=== PATIENT | male | born 2000 | race Caucasian/White ===

== ENCOUNTER 2020-09-28 20:24 | Inpatient (IN) | payer OTHER ==
[~2020-09-28] VITALS: Ht 185.4 cm; Wt 91.8 kg
[2020-09-28 21:30] LABS: HEMATOCRIT 48.1 % (42.0-52.0); HEMOGLOBIN 15.8 g/dl (13.5-17.5); MEAN CORPUSCULAR HEMOGLOBIN 28.6 pg (27.0-33.0); MEAN CORPUSCULAR HGB CONC 32.8 g/dl (32.0-36.5); PLATELET COUNT, AUTOMATED 255 10^3/uL (150-450); RED BLOOD COUNT 5.53 10^6/uL (4.30-6.10); WHITE BLOOD COUNT 7.6 10^3/uL (4.0-10.0)
[2020-09-28 22:07] LABS: AMPHETAMINES LEVEL URINE NEGATIVE (NEGATIVE); BARBITURATES URINE NEGATIVE (NEGATIVE); BENZODIAZEPINES URINE NEGATIVE (NEGATIVE); CANNABINOIDS URINE NEGATIVE (NEGATIVE); COCAINE METABOLITE URINE NEGATIVE (NEGATIVE); METHADONE URINE NEGATIVE (NEGATIVE); OPIATES URINE NEGATIVE (NEGATIVE); PHENCYCLIDINE URINE NEGATIVE (NEGATIVE)
[2020-09-28 22:15] LABS: ACETAMINOPHEN LEVEL < 2.0 UG/ML (10.0-30.0); ALBUMIN 3.8 GM/DL (3.2-5.2); ALT/SGPT 29 U/L (12-78); BILIRUBIN,DIRECT 0.2 MG/DL (0.0-0.2); BILIRUBIN,TOTAL 0.6 MG/DL (0.2-1.0); BLOOD UREA NITROGEN 12 MG/DL (7-18); CALCIUM LEVEL 8.7 MG/DL (8.5-10.1); CARBON DIOXIDE LEVEL 29 MEQ/L (21-32); CHLORIDE LEVEL 103 MEQ/L (98-107); ETHYL ALCOHOL (ETHANOL) < 0.003 % (0.000-0.010); GLUCOSE, FASTING 116 MG/DL (70-100); POTASSIUM SERUM 3.8 MEQ/L (3.5-5.1); SALICYLATE LEVEL < 1.7 MG/DL (5.0-30.0); SODIUM LEVEL 138 MEQ/L (136-145); TOTAL PROTEIN 7.1 GM/DL (6.4-8.2)
[2020-09-29 00:12] LABS: RSV AMPLIFICATION NEGATIVE (NEGATIVE)
[2020-09-29] MEDS ORDERED: MAALOX 30 ML SUSP *UDC PO PRN (00:30)
[2020-09-29] MEDS ORDERED: traZODone 50 MG TAB PO PRN (00:30)
[2020-09-29] MEDS ORDERED: ACETAMINOPHEN TAB 650MG DOSE (2X325MG) PO PRN (00:30)
[2020-09-29] MEDS ORDERED: OLANZapine ORAL DISINTEGRATING TAB 5MG PO PRN (00:30)
[2020-09-29] MEDS ORDERED: MOM 30ML SUSPENSION UDC PO PRN (00:30)
[2020-09-29] MEDS ORDERED: VITMTA PO (02:08)
[2020-09-29] MEDS ORDERED: MELA3TAB29 PO (02:08)
--- NOTE | 2020-09-29 02:48 | ECGEPIP ---
[facility] - ED Test Date: 2020-09-28 Pat Name: LYDIA OZUNA Department: Room: - Gender: Male [employer]: waldo : 2000 Requested By: Omkar العلي Order Number: [id number] Reading MD: Omkar Sal Measurements Intervals [place] Rate: 65 P: 42 CO: 122 QRS: 59 QRSD: 108 T: 58 QT: 392 QTc: 407 Interpretive Statements Normal sinus rhythm INCOMPLETE RIGHT BUNDLE BRANCH BLOCK NO PRIORS FOR COMPARISON Electronically Signed on 09-29-2020 2:47:37 EDT by Omkar Sal
[2020-09-29 06:41] VITALS: BP 126/92
[2020-09-29] MEDS: SERTRALINE HCL 50 MG TAB PO SCH (09:06)
[2020-09-29] MEDS ORDERED: CitaloPRAM (CeleXA) 10 MG TABLET PO ONE (09:15)
--- NOTE | 2020-09-29 12:39 | MHHPE ---
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 He is currently 9.39 legal status. CHIEF COMPLAINT: I wanted to kill myself. HISTORY OF PRESENT ILLNESS: Two days ago the patient got DUI, he became very depressed with ongoing stress , due to breakup with his girlfriend. He had suicidal thoughts and wanted to kill himself and try to cut superficially. He told his friend who in turn informed the sergeant and he was brought to the emergency room. This is his first psychiatric hospitalization. The patient has seen therapist before. The patient has self mutilating behavior from age 16, complains of hopelessness, helplessness, poor sleep, decreased appetite, Denies history of manic episodes of psychosis. PAST PSYCHIATRIC HISTORY: Never been hospitalized on psychiatric units. He has seen therapist. When he was young, he was treated with Ritalin for attention-deficit/hyperactive disorder (ADHD). SUICIDAL HISTORY: He has attempted suicide a couple of times by trying to choke himself and overdose himself. LEGAL HISTORY: This is his first driving under the influence (DUI) he got about 2 days ago. DRUG AND ALCOHOL HISTORY: The patient drinks alcohol during the week about a bottle of Vodka. He used to drink more before, but now he is not drinking much. Denies the use of any other drugs like cannabis. MEDICAL HISTORY: Denies medical problems. FAMILY HISTORY: Sister and brother have a history of depression. PERSONAL HISTORY: He has one brother and one sister. He was raised by biological parents. No history of abuses. He graduated from high school. MENTAL STATUS EXAMINATION: Well built of average height, cooperative, made poor eye contact. Psychomotor activity is normal. Mood is depressed. Affect is constricted. Thought process: Linear, goal directed. Thought content: Complained of suicidal thoughts without any plans. Perceptions: Denies any auditory hallucinations. He is oriented to time, place and person. His attention is good. VITAL SIGNS: Temperature 98.2, pulse is 76, blood pressure is 126/92, pulse oximetry is 98%. LABORATORY DATA: Complete blood count (CBC) within normal limits. Comprehensive metabolic panel (CMP) within normal limits. Toxicology was negative. Serology was negative for COVID too by PCR testing. REVIEW OF SYSTEMS: Constitutional: Denies fever or weight loss. HEENT: Denied headache, epistasis. Respiratory: Denies cough or shortness of breath. CVS: Denied chest pain, palpitations. Gastrointestinal (GI): Denied any abdominal pain, abdominal distension. Genitourinary (): Denied dysuria, hematuria. Neuro: Denied numbness, tingling, dizziness. Points and joints normal. DIAGNOSIS: 1. Depressive disorder, not otherwise specified, rule out substance abuse, mood disorder. 2. Alcohol use disorder. ASSESSMENT AND PLAN: 1. The patient tried to cut himself superficially and the patient has tendency to cut himself from age 16. Currently, he is depressed. Triggering factor was he had dew eyes. Plan is to [facility]. 2. He will be seen by casing sewer for medical needs. 3. He will be seen by case management and public health social worker. 4. He will be on suicide precaution. 5. He will go to activities. 6. He will be provided with individual group in [facility]. 7. Medications. The patient will be placed on citalopram 10 mg a.m., titrate the dose. Estimated length of stay is 4 to 5 days. Time spent: One hour. [facility] CENTERLu[facility]
[2020-09-29 16:31] VITALS: BP 133/67
--- NOTE | 2020-09-29 17:06 | HPEPDOC ---
General Date of Admission Sep 29, 2020 at 00:37 Date of Service: Sep 29, 2020 Attending Physician: JACE BRIGHT MD Chief Complaint The patient is a 19-year-old male admitted with a reason for visit of Unspecified Depressive Do. 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 In the ED, he was hemodynamically stable and CBC, BMP and tox screen were wnl. He was admitted to the [facility] for psych evaluation and treatment. Home Medications Scheduled Multivitamins (Thera M Plus Tablet) 1 Each Tablet, 1 TAB PO DAILY, (Reported) Scheduled PRN Melatonin (Melatonin) 3 Mg Tablet, 3 MG PO QHS PRN for INSOMNIA, (Reported) Allergies Coded Allergies: No Known Allergies (Unverified , 09/28/20) Past Medical History Medical History Depression Prior suicidal attempts Childhood diagnosis of ADHD Surgical History None Family History Depression Social History * Smoker: Denies Alcohol: occationally Drugs: denies Recent Travel/Sick Contacts: Reports: Recent travel Psychosocial History: Decreased mood, Depression, Suicidal thoughts A-FIB/CHADSVASC A-FIB History Current/History of A-Fib/PAF?: No Current PO Anticoag Therapy: No Age/Risk Factor Scoring CHADSVASC: CHADSVASC Response (Comments) Value Age Risk Factor Age < 65 years old 0 Gender Risk Factor Male 0 Hx of CHF No 0 Hx of HTN No 0 Hx of Stroke/TIA/or VTE No 0 Hx of Diabetes No 0 Hx of Vascular Disease No 0 Total 0 Treatment Treatment ordered: NONE Reason Anticoagulant not given: Not indicated/[id number] Review of Systems Constitutional: Denies: Chills, Fever, Night Sweats Eyes: Denies: Pain, Vision change ENT: Denies: Head Aches, Ear Pain, Dysphagia Skin: Denies: Rash, Lesions, Breakdown Pulmonary: Denies: Dyspnea, Cough Cardiovascular: Denies: Chest Pain, Palpitations, Orthopnea, Paroxysmal Noc. Dyspnea, Lt Headedness Gastrointestinal: Denies: Nausea, Vomiting, Abdominal Pain, Diarrhea Genitourinary: Denies: Dysuria, Frequency, Incontinence, Retention Hematologic: Denies: Bruising, Bleeding Excessively Endocrine: Denies: Polydipsia, Polyphagia, Polyuria, Heat Intolerance, Cold Intolerance, Other Endocrine Sx Musculoskeletal: Denies: Neck Pain, Back Pain, Joint Pain, Muscle Pain, Spasms Neurological: Denies: Weakness, Numbness, Change in speech, Confusion Psych: Reports: Depression, Thoughts of Self Harm; Denies: Anger, Thoughts of Harming Other Physical Examination General Exam: Positive: Alert, No Acute Distress Eye Exam: Positive: PERRLA, Conjunctiva & lids normal, EOMI; Negative: Sclera icteric ENT Exam: Positive: Atraumatic, Mucous membr. moist/pink, Pharynx Normal Neck Exam: Positive: Supple; Negative: JVD, thyromegaly Chest Exam: Positive: Clear to auscultation, Normal air movement Heart Exam: Positive: Rate Normal, Regular Rhythm, Normal S1, Normal S2; Negative: Murmurs, Rubs Abdomen Exam: Positive: Normal bowel sounds, Soft; Negative: Tenderness, Hepatospenomegaly Extremity Exam: Positive: Normal pulses; Negative: Clubbing, Cyanosis, Edema Skin Exam: Positive: Nl turgor and temperature; Negative: Breakdown, Lesion Neuro Exam: Positive: Normal Gait, Normal Speech, Cranial Nerves 3-12 NL, Reflexes 2+ Psych Exam: Positive: Oriented x 3; Negative: Mood NL (depressed) Vital Signs Vital Signs Date Time Temp Pulse Resp B/P (MAP) Pulse Ox O2 Delivery O2 Flow Rate FiO2 09/29/20 16:31 97.0 70 16 133/67 (89) 98 Room Air Laboratory Data Labs 24H Laboratory Tests 2 09/28/20 21:20: Nucleated Red Blood Cells % (auto) 0.0, Anion Gap 6L, Calcium Level 8.7, Total Bilirubin 0.6, Direct Bilirubin 0.2, Aspartate Amino Transf (AST/SGOT) 22, Alanine Aminotransferase (ALT/SGPT) 29, Alkaline Phosphatase 96, Total Protein 7.1, Albumin 3.8, Albumin/Globulin Ratio 1.2, Thyroid Stimulating Hormone (TSH) 6.130H, Salicylates Level < 1.7L, Urine Opiates Screen NEGATIVE, Urine Methadone Screen NEGATIVE, Acetaminophen Level < 2.0L, Urine Barbiturates Screen NEGATIVE, Urine Phencyclidine Screen NEGATIVE, Urine Amphetamines Screen NEGATIVE, Urine Benzodiazepines Screen NEGATIVE, Urine Cocaine Metabolite Screen NEGATIVE, Urine Cannabinoids Screen NEGATIVE, Ethyl Alcohol Level < 0.003 09/28/20 23:23: Coronavirus (COVID-19)(PCR) NEGATIVE, Influenza Type A (RT-PCR) NEGATIVE, Influenza Type B (RT-PCR) NEGATIVE, Respiratory Syncytial Virus (PCR) NEGATIVE CBC/BMP Laboratory Tests 09/28/20 21:20 Assessment/Plan 19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 Depression with suicidal thoughts: -Plan per primary psych team. The patient is otherwise physically well without current medical complaints. Internal medicine will sign off at this time. Plan / VTE VTE Prophylaxis Ordered?: No VTE Exclusion Mechanical Proph: Low Risk for VTE VTE Exclusion Pharmacological: At Low Risk for VTE JACE BRIGHT MD Sep 29, 2020 17:06
[2020-09-30] MEDS ORDERED: CitaloPRAM (CeleXA) 10 MG TABLET PO SCH (09:00)
[2020-09-30] MEDS: SERTRALINE HCL 50 MG TAB PO SCH (09:06)
[2020-09-30 16:33] VITALS: BP 142/62
--- NOTE | 2020-09-30 16:38 | MHIPN ---
[facility] PROGRESS NOTE DATE: 09/30/2020 SUBJECTIVE: "I feel better. I don't have any suicidal thoughts." Patient also reported that he has a history of hypomanic episodes in the past, wherein he felt grandiose, being on the top of the world, racing thoughts, impulsive behavior. OBJECTIVE: He is a 19-year-old male, single, active-duty soldier, admitted for suicide attempt. Patient had a breakup with his girlfriend. Made him suicidal and tried to cut his forearm. Never been hospitalized before. Patient has a history of attention deficit hyperactivity disorder (ADHD). MENTAL STATUS EXAMINATION: Casually dressed, neat-looking, well-groomed male, cooperative. Made good eye contact. Mood is euthymic. Speech rate, rhythm, volume are good. Denied any auditory or visual hallucinations. Denied suicidal or homicidal ideas. Insight and judgment are fair. VITAL SIGNS: Temperature 97, pulse 70, respirations 16, blood pressure 133/67, pulse oximetry 98. LABORATORY DATA: CBC within normal limits. CMP within normal limits; however, his TSH was slightly high. Toxicology was negative. DIAGNOSIS: Mood disorder, not otherwise specified, rule out bipolar 2 disorder. PLAN: Add Depakote ER 500 mg at night. ESTIMATED LENGTH OF STAY: Two days. TIME SPENT: 30 minutes.
[2020-09-30] MEDS ORDERED: DIVALPROEX 500MG *ER* TAB PO SCH (21:00)
[2020-10-01 06:29] VITALS: BP 125/63
[2020-10-01] MEDS: SERTRALINE HCL 50 MG TAB PO SCH (08:50)
[2020-10-01] MEDS ORDERED: SERT50TA29 PO (10:06)
[2020-10-01] MEDS ORDERED: DEPA500T2 PO (10:06)
--- NOTE | 2020-10-01 10:58 | MHDS ---
DISCHARGE SUMMARY DATE OF ADMISSION: 09/29/2020 DATE OF DISCHARGE: 10/01/2020 DIAGNOSIS: Mood disorder not otherwise specified, rule out bipolar II disorder. 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 He had breakup with his girlfriend. He tried to cut his forearm. This is his first psychiatric hospitalization. Patient has been diagnosed with ADHD. HISTORY OF PRESENT ILLNESS/ PAST PSYCHIATRIC HISTORY/MEDICAL HISTORY/SUBSTANCE ABUSE HISTORY/SOCIAL HISTORY: For details, please refer to the initial evaluation. COURSE IN THE HOSPITAL: Patient was initially depressed, had suicidal thoughts. He was started on Prozac. He made some recovery. Later on, Depakote was added to his list of medications because of mood swings and probable bipolar disorder. Patient recovered fast. He started attending groups and activities. He interacted well with the staff. He also was given individual therapy and psychoeducation. Patient was stable. He denied any side effect of the medication. He was stable at the time of discharge. MENTAL STATUS EXAMINATION: Casually dressed, neat looking, well groomed. Cooperative. Made good eye contact. Psychomotor activity is normal. Speech rate, rhythm, volume are good. Denied suicidal/homicidal ideas. Perception; denied auditory or visual hallucinations. Insight and judgment are fair to good. VITAL SIGNS: Temperature 97, pulse 57, respiratory rate 16, blood pressure 125/63, pulse oximetry 98%. LABS: CBC within normal limits. CMP within normal limits. TSH was slightly high. TOXICOLOGY: Negative. PLAN: The plan is to discharge him home with follow-up at [facility]. DISCHARGE MEDICATIONS: 1. Depakote 500 mg at night. 2. Sertraline 50 mg daily. TIME SPENT: less than 30 minutes.
== END 2020-10-01 12:00 | disposition home or self-care (01) | DRG 885 ==
LOC: M ED 20:24 → M ED INP 09-29 00:37 → M PSY 09-29 04:16
PROVIDERS: ADMIT Psychiatry & Neurology Psychiatry; ATTEND Psychiatry & Neurology Psychiatry
DX: F31.81 Bipolar II disorder (principal); R45.851 Suicidal ideations; F10.10 Alcohol abuse, uncomplicated; Z91.5 Personal history of self-harm; Z63.0 Problems in relationship with spouse or partner; Z81.8 Family history of other mental and behavioral disorders; Z20.822 Contact with and (suspected) exposure to COVID-19